=== PATIENT | female | born 1990 | race African-American/Black ===

== ENCOUNTER 2017-08-13 13:35 | Emergency (ER) | payer SELFPAY ==
[~2017-08-13] VITALS: Ht 167.6 cm; Wt 65.0 kg
[~2017-08-13 13:35] MED LIST: AMOX875 PO; BACT800T5 PO; CARB6.5S5 AS; CEPH500C3 PO
[2017-08-13 13:48] VITALS: BP 111/63; PULSE 80; RESP 16; TEMP 98.4; O2SAT 98
[2017-08-13 15:32] LABS: BACTERIA, URINE OCC /hpf; BILIRUBIN, URINE NEG (NEG); BLOOD, URINE MOD (NEG); GLUCOSE,URINE NEG (NEG); KETONE, URINE NEG (NEG); MUCUS URINE FEW /lpf (OCC); NITRITE,URINE NEG (NEG); SQUAMOUS EPITHELIAL CELL URINE 1 /hpf (0-5); TRANSITIONAL EPI CELLS, URINE 2 /hpf; URINE COLOR YELLOW (YELLW/STRAW); URINE LEUKOCYTE ESTERASE SMALL (NEG)
[2017-08-13] MEDS ORDERED: MACR100C2 PO (16:17)
--- NOTE | 2017-08-13 16:18 | PD ---
HPI Chief Complaint: Complaint Time Seen by Provider: 15:56 Travel History International Travel<30 days: No Contact w/Intl Traveler<30days: No Traveled to known affect area: No History of Present Illness HPI 27-year-old female presents the ED for evaluation of 3 day history of urinary urgency, urinary frequency and streaky hematuria. Patient denies fever, chills , nausea, vomiting, abdominal pain, back pain. She denies vaginal discharge or vaginal odor. Unsure of her last menstrual period secondary to control use. She states symptoms are similar to previous UTI. Treated at home with Azo with some improvement of symptoms. 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 SKIN: Focused skin assessment warm/dry. HEAD: Normocephalic. EYES: No scleral icterus. No injection or drainage. NECK: Supple, trachea midline. No JVD or lymphadenopathy. CARDIOVASCULAR: Regular rate and rhythm without murmurs, gallops, or rubs. RESPIRATORY: Breath sounds equal bilaterally. No accessory muscle use. GASTROINTESTINAL: Abdomen soft, non-tender, nondistended. No suprapubic tenderness. MUSCULOSKELETAL: No cyanosis, or edema. BACK: Nontender without obvious deformity. No CVA tenderness. Data Data Last Documented VS Vital Signs Date Time Temp Pulse Resp B/P (MAP) Pulse Ox O2 Delivery O2 Flow Rate FiO2 08/13/17 13:48 98.4 80 16 111/63 (79) 98 Orders Orders Urinalysis - C+S If Indicated (08/13/17 13:50) Ed Urine Pregnancytest Poc (08/13/17 13:50) Urine Culture (08/13/17 14:05) Nitrofurantoin Monohyd Macrocr (Macrobid (08/13/17 16:30) Ed Discharge Order (08/13/17 16:18) Labs Laboratory Tests Test 08/13/17 14:05 Urine Color YELLOW Urine Turbidity HAZY Urine pH 8.0 Urine Specific [place] 1.021 Urine Protein 30 mg/dL Urine Glucose (UA) NEG mg/dL Urine Ketones NEG mg/dL Urine Occult Blood MOD Urine Nitrite NEG Urine Bilirubin NEG Urine Urobilinogen 2.0 MG/DL Urine Leukocyte Esterase SMALL Urine RBC 155 /hpf Urine WBC 35 /hpf Urine Squamous Epithelial Cells 1 /hpf Urine Transitional Epithelial Cells 2 /hpf Urine Bacteria OCC /hpf Urine Mucus FEW /lpf Microscopic Urinalysis Comment CULTURE INDICATED MDM Medical Decision Making Medical Screen Exam Complete: Yes Emergency Medical Condition: Yes Differential Diagnosis Cystitis versus pyelonephritis versus STI versus versus other Narrative Course 27-year-old female presents the ED for evaluation of 3 day history of urinary urgency, urinary frequency and streaky hematuria. Unsure of LMP secondary to contraceptive use. Vitals reviewed. Patient's afebrile on presentation. Physical exam is unremarkable. No CVA tenderness. No suprapubic tenderness. UA hazy, moderate occult blood, small leukocyte Estrace, 155 RBCs, 35 WBCs, occasional bacteria, culture pending. I reviewed the patient's records, you no urine culture available. Patient's prescribed Macrobid twice daily 5 days, first dose administered in the ED. She is instructed to take all medication until it is gone, return for worsening symptoms. She indicated understanding the instructions. She is stable and discharged home. Diagnosis Primary Impression: Acute hemorrhagic cystitis Referrals: Primary Care Physician Additional Instructions: Rest, hydrate. Begin antibiotics today and take them until every pill is gone. Follow with your primary care provider. Return to the ED for worsening symptoms or any urgent or emergent medical condition. Med/Other Pt SpecificInfo: Prescription(s) given Scripts Nitrofurantoin Monohydrate Macrocrystals (Macrobid) 100 Mg Capsule 100 MG PO BID for Infection for 5 Days, #10 CAP 0 Refills Prov: Hird,Lilliana May MD 08/13/17 Disposition: 01 DISCHARGE HOME Condition: Stable Gia Mckoy August 13, 2017 16:18
[2017-08-13] MEDS ORDERED: NITROFURANTOIN MONOHYD MACROCR 100 MG CAP PO ONE (16:30)
== END 2017-08-13 16:35 | disposition home or self-care (01) ==
LOC: NEPK 13:35
DX: N30.01 Acute cystitis with hematuria (principal)
CPT/HCPCS: 81001; 84703; 87077; 87086; 87186; 99283